=== PATIENT | female | born 1975 | race Caucasian/White ===

== ENCOUNTER → 2018-12-22 08:44 | Outpatient (CLI) | payer OTHER, SELFPAY ==
--- NOTE | 2018-12-22 08:48 | MM_ITS ---
MM Dig screening mamm BI w/CAD ORDERING PHYSICIAN : Dru Lane MD PATIENT AGE: 43 years GENDER: Female COMPARISON: No previous studies. Baseline exam INDICATION: Routine: Baseline SCREENING mammogram. No hormones. No new complaints. Noncontributory family history. TECHNIQUE: Standard CC and MLO images were obtained. R2 CAD reviewed. FINDINGS: Minimal residual fibroglandular elements Low-density breast with generalized fatty replacement. RIGHT BREAST:. 2 small nodular density at right breast. Area labeled A: Lateral breast towards quadrant of right breast. It measures up to 13 mm length x 4 mm.. Bilobed character. I suspect there is by far most likely a benign intramammary node. I believe follow-up 4-6 months would be the most practical approach for this feature Area labeled B: compatible intramammary node with a Deep central right breast measures up to 7.2 mm maximally.. LEFT BREAST:No areas of concern follow-up in one year on the left. Mole marker on second cc view accounts for the small density at medial left breast. Near the chest wall IMPRESSION: Right breast . Areas of nodularity which are more likely merely intramammary nodes. Suggest follow-up right mammogram 4-6 months to stable baseline appearance. Left breast. No areas of concern follow-up in one year BI-RADS Category: 3 Probably Benign Finding Short Term Follow-up RECOMMENDED FOLLOW-UP: 6M - 6 MONTH FOLLOW-UP Follow-up right mammogram in 4-6 months (A letter has been sent to the patient regarding results of the study.)
== END ==
PROVIDERS: PCP Family Medicine; Visit Provider Family Medicine
DX: Z12.31 Encounter for screening mammogram for malignant neoplasm of breast (principal)
CPT/HCPCS: 77067

== ENCOUNTER → 2019-04-01 10:44 | Outpatient (CLI) | payer OTHER, SELFPAY ==
--- NOTE | 2019-04-01 10:51 | XR_ITS ---
XR knee LT 3V Ordering Physician: Bryant Argueta MD Patient Age: 44 years: Female HISTORY: ITS.REASON: LEFT KNEE PAIN X 18 MONTHS Grinding, popping sensation at knee. TECHNIQUE: 3 views left knee nonweightbearing COMPARISON :None FINDINGS Left knee intact with no fracture. Bones well mineralized and joint space well maintained. . No joint effusion. No foreign bodies. IMPRESSION: Negative, Unremarkable Left Knee radiograph
== END ==
PROVIDERS: PCP Family Medicine; Referring Provider Family Medicine; Visit Provider Family Medicine
DX: M25.562 Pain in left knee (principal)
CPT/HCPCS: 73562

== ENCOUNTER → 2019-04-11 07:56 | Outpatient (CLI) | payer OTHER, SELFPAY ==
--- NOTE | 2019-04-11 08:02 | MR_ITS ---
MR knee LT wo con HISTORY: ITS.REASON: STRAIN OF LEFT KNEE ORDERING PHYSICIAN: Bryant Argueta MD PATIENT AGE: 44 years Comparison: 04/01/2019. TECHNIQUE: Standard multiplanar multiecho sequences are performed without contrast. FINDINGS: Alignment, joint spaces and signal from the osseous marrow elements are normal except there is a small subchondral 4 mm focus of increased T2 signal at the lateral facet of the patella where there is irregularity of the overlying articular cartilage. Remainder of the articular cartilage areas appear to be intact. There is a oblique linear focus of increased signal beginning at the posterior nonarticular margin of the posterior horn of the medial meniscus and this extends to the mid inferior articular margin of the posterior horn of the medial meniscus. The remainder of the medial meniscus and the lateral meniscus appear to be otherwise normal. Quadriceps and patellar tendons are intact. ACL and PCL and the MCL are intact. The lateral capsular complex appears to be intact. There is a small joint effusion. There is no evidence of popliteal cyst. IMPRESSION: Subtle linear oblique tear beginning at the posterior nonarticular margin of the posterior horn of the medial meniscus and extends to the mid inferior articular margin. 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
== END ==
PROVIDERS: PCP Family Medicine; Visit Provider Family Medicine
DX: S86.912A Strain of unspecified muscle(s) and tendon(s) at lower leg level, left leg, initial encounter (principal)
CPT/HCPCS: 73721

== ENCOUNTER → 2019-07-24 08:15 | Outpatient (CLI) | payer OTHER, SELFPAY ==
--- NOTE | 2019-07-24 08:18 | US_ITS ---
PROCEDURE: US ABDOMEN LIMITED CLINICAL INDICATION: RUQ PAIN Right upper quadrant pain with nausea COMPARISON: No exams were available for comparison FINDINGS: PANCREAS: Unremarkable. No obvious mass or abnormal fluid collection. No ductal dilatation LIVER: No focal liver lesions demonstrated. Homogeneous echogenicity. No intrahepatic biliary ductal dilatation evident. There is appropriate direction of blood flow within a non dilated portal vein RIGHT KIDNEY: Unremarkable. Normal size and echogenicity. No hydronephrosis GALLBLADDER: Wall echo shadow sign is present in the gallbladder consistent with contracted gallbladder filled with stones. Common bile duct is normal at 3 mm. Gallbladder wall appears slightly thickened at 4 mm anteriorly. IMPRESSION: Cholelithiasis. Mild gallbladder wall thickening Dictated by: Van Figueroa MD 07/24/2019 17:59 Electronically signed by Van Figueroa MD in [place] 07/24/2019 17:59
== END ==
PROVIDERS: PCP Family Medicine; Visit Provider Physician Assistant
DX: R10.11 Right upper quadrant pain (principal)
CPT/HCPCS: 76705

== ENCOUNTER → 2019-08-02 15:46 | Outpatient (CLI) | payer OTHER, SELFPAY ==
[2019-08-02 16:02] LABS: Basophils % 0.4 % (0.1-2.0); Eosinophils # 0.4 K/mm3 (0.0-0.4); Eosinophils % 4.7 % (0.1-12.0); Hematocrit 36.1 % (37.0-47.0); Hemoglobin 11.4 g/dL (12.2-16.2); Lymphocytes # 1.3 K/mm3 (0.7-4.5); Lymphocytes % 17.3 % (10-50); Mean Corpuscular HGB Conc 31.6 g/dL (31.8-35.4); Mean Corpuscular Hemoglobin 26.9 pg (27.0-31.2); Mean Corpuscular Volume 85.1 fl (81-99); Monocytes # 0.4 K/mm3 (0.1-1.0); Monocytes % 4.7 % (1.7-9.3); Neutrophils # 5.7 K/mm3 (1.8-7.8); Neutrophils % 72.9 % (37.0-80.0); Platelet Count 273 K/mm3 (142-424); Red Blood Count 4.24 M/mm3 (4.20-5.40); Red Cell Distribution Width 13.9 % (11.5-17.5); White Blood Count 7.8 K/mm3 (4.8-10.8)
[2019-08-02 17:40] LABS: HCG Qualitative, Serum Negative (Negative)
[2019-08-02 17:54] LABS: Alanine Aminotransferase 15 U/L (12-78); Albumin/Globulin Ratio 1.2 (1.1-1.8); Alkaline Phosphatase 100 U/L (46-116); Anion Gap 11.8 mEq/L (5-15); Aspartate Amino Transferase 17 U/L (15-37); Bilirubin,Total 0.3 mg/dL (0.2-1.0); Blood Urea Nitrogen 17 mg/dL (7-18); Calcium 8.8 mg/dL (8.5-10.1); Carbon Dioxide 29 mmol/L (21.0-32.0); Chloride 102 mmol/L (98-107); Creatinine,Serum 0.93 mg/dL (0.55-1.02); Estimated Glomerular Filt Rate 65 ml/min (>60); GFR (African American) 79 ML/MIN (>60); Globulin 3.4 gm/dl (1.3-3.2); Glucose 117 mg/dL (74-106); Potassium 3.8 mmoL/L (3.5-5.1); Sodium 139 mmol/L (136-145); Total Protein,Serum 7.4 gm/dL (6.4-8.2)
== END ==
PROVIDERS: Visit Provider Surgery
DX: Z01.818 Encounter for other preprocedural examination (principal); K80.10 Calculus of gallbladder with chronic cholecystitis without obstruction
CPT/HCPCS: 36415; 80053; 84703; 85025

== ENCOUNTER 2020-01-09 14:12 | Emergency (ER) | payer OTHER, SELFPAY ==
[2020-01-09 14:21] VITALS: BP 165/103; PULSE 111; RESP 18; TEMP 36.9; O2SAT 100; BMI 28.3
--- NOTE | 2020-01-09 14:25 | XR_ITS ---
PROCEDURE: XR CHEST PORTABLE CLINICAL HISTORY: cough/respiratory symptoms COMPARISON: No exams were available for comparison FINDINGS: The cardiomediastinal silhouette and pulmonary vascularity are within normal limits. The lungs are clear without infiltrates, suspicious nodules, or pleural effusions. No acute bony abnormalities. IMPRESSION: No acute findings. Dictated by: Van Figueroa MD 01/09/2020 15:16 Electronically signed by Van Figueroa MD in [place] 01/09/2020 15:16
--- NOTE | 2020-01-09 14:26 | HMH.COUGH ---
Cough Clinic HPI - History of Present Illness Complaint:: nasal congestion and shortness of breath HPI:: 44 year old with 2-3 days of nasal congestion, sneezing, minimal to no cough, and complaint of shortness of breath. No fevers, chills. No personal history of asthma or allergies Home Medications: Home Medications Medication Instructions Recorded Confirmed Type cyclobenzaprine 5 mg tablet 5 mg PO QHS 08/02/19 01/09/20 History hyoscyamine sulfate 0.125 mg tablet 0.125 mg PO QID 08/02/19 01/09/20 History lisinopril 20 1 tab PO DAILY 08/02/19 01/09/20 History mg-hydrochlorothiazide 12.5 mg tablet mecobalamin (vitamin B12) 1,000 1,000 mcg SUBLINGUAL DAILY 08/02/19 01/09/20 History mcg disintegrating tablet,sublingual meloxicam 15 mg tablet 15 mg PO DAILY 08/02/19 01/09/20 History omeprazole 40 mg capsule,delayed 40 mg PO DAILY 08/02/19 01/09/20 History release polyethylene glycol 3350 17 17 g PO DAILY 08/02/19 01/09/20 History gram/dose oral powder potassium chloride 10 mEq 10 meq PO DAILY 08/02/19 01/09/20 History capsule,extended release prednisone 20 mg tablet 20 mg PO DAILY 08/02/19 01/09/20 History sertraline 50 mg tablet 50 mg PO DAILY 08/02/19 01/09/20 History simvastatin 20 mg tablet 20 mg PO QHS 08/02/19 01/09/20 History Hydrocod/Acet 5/325 mg [[place] 1 - 2 tab PO Q6HP PRN #23 tab 09/01/19 01/09/20 Rx 5/325mg tablet] Cetirizine HCl 10 mg PO DAILY #30 tab 01/09/20 Rx Allergies/Adverse Reactions: Allergies Allergy/AdvReac Type Severity Reaction Status Date / Time Penicillins Allergy Rash Verified 01/09/20 14:21 Cough Clinic Triage - Symptoms Fever History: No Chills: Yes Myalgia: Yes Nasal Drainage: Yes (clear) Sore Throat: No Productive Cough: No Non-productive Cough: Yes Ear or Sinus Pain: No Joint Pain: No Chest Pain: Yes (tightness) Rash: No Shortness of Breath: Yes Nausea or Vomitting: No Headache: Yes Abdominal Pain: No Diarrhea: No - Exposure History Foreign Travel: No Direct Contact with COVID-19 Patient: No - Risk Factors Greater than 60 Years Old: No COPD: No Diabetes: No Heart Disease: Yes (htn) Home Oxygen Use: No Chronic Renal Disease: No Chronic Liver Disease: No Neurologic/Neurodevelopmental/intellectual disability: No Other Chronic Diseases: No If Female, currently : No Current Smoker: No Former Smoker: No Cough Clinic History I have reviewed the patient's past medical history: Yes Medical History: Reports:: Anxiety, Hyperlipidemia, Hypertension Denies:: Cancer, Diabetes Mellitus Type 1, Diabetes Mellitus Type 2, Internal Pacemaker, MRSA, Seizures Other Medical History: Denies: Blood Transfusion Reaction Laterality Cases: Right: Arthroscopy Knee Other Surgeries: Yes: Cholecystectomy, . No: Pacemaker Amputation: No Fractures: No - Social History Smoking Status: Never smoker Alcohol Intake: never Substance Use Type: denies use Occupational Status: employed Housing: house Household Members: spouse - Psychiatric History Pschychiatric History:: Reports:: Anxiety Family Hx:: Unable to obtain ROS Obtained: Yes All systems reviewed & no additional complaints Cough Clinic Exam - General General appearance: alert, in no apparent distress - Head Head exam: atraumatic, normocephalic, normal inspection - Eye Eye exam: Present: normal appearance, PERRL, EOMI - ENT ENT exam: Present: normal exam, normal oropharynx, mucous membranes moist, TM's normal bilaterally (small clear effusions), normal external ear exam - Neck Neck exam: Present: normal inspection, full ROM, trachea midline. Absent: meningismus, lymphadenopathy - Chest Chest inspection: Present: normal inspection, symmetric chest wall rise. Absent: tenderness - Respiratory Respiratory exam: Present: normal lung sounds bilaterally. Absent: respiratory distress - Cardiovascular Cardiovascular exam: Present: regular rate, normal rhythm. Absent:
[2020-01-09 14:40] LABS: Hematocrit 38.1 % (37.0-47.0); Mean Corpuscular HGB Conc 31.6 g/dL (31.8-35.4); Mean Corpuscular Hemoglobin 25.7 pg (27.0-31.2); Mean Corpuscular Volume 81.2 fl (81-99); Platelet Count 303 K/mm3 (142-424); Red Blood Count 4.69 M/mm3 (4.20-5.40); Red Cell Distribution Width 14.9 % (11.5-17.5); White Blood Count 9.1 K/mm3 (4.8-10.8)
[2020-01-09 14:41] LABS: Basophils # 0.1 K/mm3 (0-0.2); Basophils % 0.5 % (0.1-2.0); Eosinophils # 0.3 K/mm3 (0.0-0.4); Eosinophils % 3.3 % (0.1-12.0); Lymphocytes # 1.5 K/mm3 (0.7-4.5); Mean Platelet Volume 8.5 fl (7.4-10.4); Monocytes # 0.5 K/mm3 (0.1-1.0); Monocytes % 5.5 % (1.7-9.3); Neutrophils # 6.7 K/mm3 (1.8-7.8); Neutrophils % 73.7 % (37.0-80.0)
[2020-01-09 15:04] VITALS: BP 165/103; PULSE 111; RESP 16; TEMP 36.9; O2SAT 99
== END 2020-01-09 15:07 | disposition home or self-care (01) ==
PROVIDERS: Emergency Provider Family Medicine; PCP Family Medicine
DX: J30.2 Other seasonal allergic rhinitis (principal); F41.8 Other specified anxiety disorders; E78.5 Hyperlipidemia, unspecified; I10 Essential (primary) hypertension; Z90.49 Acquired absence of other specified parts of digestive tract
CPT/HCPCS: 36415; 71045; 85025; 87275; 87276; 99201; 99213

== ENCOUNTER → 2020-01-10 11:02 | Outpatient (CLI) | payer OTHER, SELFPAY ==
[2020-01-11 08:31] LABS: Covid-19 Nasal PCR Sendout Lex NOT DETECTED
--- NOTE | 2020-01-11 09:24 | PC.NURSE ---
left message with office staff to notify and Lorie De Paz of negative COVID 19 results.
== END ==
PROVIDERS: Visit Provider Physician Assistant
DX: R06.02 Shortness of breath (principal)
CPT/HCPCS: U0003

== ENCOUNTER → 2020-03-21 08:22 | Outpatient (CLI) | payer OTHER, SELFPAY ==
--- NOTE | 2020-03-21 08:28 | MM_ITS ---
PROCEDURE: MM DIG SCREENING MAMM BI W/CAD Digital Breast Tomosynthesis Included CLINICAL INDICATION: SCREENING There is no personal or family history of breast cancer. COMPARISON: [facility] MM Dig screening mamm BI w/CAD from 12/22/2018 TECHNIQUE: Standard CC and MLO images and 3D Tomosynthesis was obtained. R2 CAD reviewed. FINDINGS: The breasts are composed primarily of fat with minimal scattered fibroglandular densities in each breast. There are 2 small stable nodular densities central portion and aspect right breast likely small cysts or possibly intramammary nodes. There is stable small density near axillary tail right breast likely a low-lying node. There is no suspicious lesion and no suspicious microcalcifications. IMPRESSION: Fatty type breast parenchyma with no suspicious lesions seen BI-RAD Category: 2 Benign Finding(s) FOLLOW-UP: 1YR 1 Year Follow-up (A letter has been sent to the patient regarding results of the study.) Dictated by: Dr. Prosper Hills MD 03/22/2020 14:[address] Prosper Hills MD in [place] 03/22/2020 14:05
== END ==
PROVIDERS: PCP Family Medicine; Visit Provider Family Medicine
DX: Z12.31 Encounter for screening mammogram for malignant neoplasm of breast (principal)
CPT/HCPCS: 77063; 77067

== ENCOUNTER 2020-08-08 11:25 | Emergency (ER) | payer OTHER, SELFPAY ==
[2020-08-08 12:00] VITALS: BP 169/91; PULSE 89; RESP 18; TEMP 36.6; O2SAT 99; BMI 28.3
--- NOTE | 2020-08-08 12:22 | HMH.EDUTC ---
[facility] [place] Clinical Impression: Exposure to COVID-19 virus Disposition: Home, Self-Care Condition on Discharge: Good Instructions: Preventing the Spread of Coronavirus Discharge Instructions Additional Instructions: *Monitor Temp, Over the counter Motrin or Tylenol as directed/as needed Tylenol every 4 hours and Motrin every 6 hours (as long as your family doctor has told you that you can take it) for fever or pain. and straight to ER if unable to lower temp less than 101.0 after medication given *Warm salt water gargles may help to soothe the throat *Throat Lozenges *Warm fluids like tea with honey may help to soothe the throat *Sleep elevated *Humidifier/Vaporizer Follow up IMMEDIATELY for new or worsening symptoms or no Noticeable improvement over the next 48-72 hours. 911 for difficulty breathing or swallowing You was tested for today for COVID19 your test result should be back in the next 24-48 hours, you may call to the [facility] later today or tomorrow to see if your test results are back and the result [phone] [facility] hours are 9am-9pm You was given a handout with instructions for Self Quarantine and Self isolation for while you wait on test results and what to do if they are positive If you are positive the Health Dept will be contacting you also Referrals: Bryant Argueta MD [Primary Care Provider] - As needed Forms: Work/School Release Time of Disposition: 12:26 Medical Decision Making - Noam Inquiry Pt receiving controlled substance: No Noam was queried for this patient: No Vital Signs: 08/08/20 12:00 Temperature 97.8 F Temperature Source Oral Pulse Rate [Radial] 89 Respiratory Rate 18 Blood Pressure [Right Arm] 169/91 H Blood Pressure Mean [Right Arm] 117 Blood Pressure Source [Right Arm] Automatic Cuff Blood Pressure Position [Right Arm] Sitting 02 Sat by Pulse Oximetry 99 Oxygen Delivery Method Room Air Orders (Tests/Meds): ORDERS Category Date Time Status Covid-19 Nasal PCR Sendout [facility] 08/08/20 12:00 Received [facility] [place] HPI - General Stated complaint: covid exposure Time Seen by Provider: 08/08/20 12:22 Mode of Arrival: Ambulatory Source of Information: Patient Limitations: No Limitations Description of Symptoms (Recalled from Triage Doc. by RN): covid test HEENT Symptoms (Recalled from RN notes): No Resp Symptoms (Recalled from RN notes): No Skin Symptoms (Recalled from RN notes): No MS Symptoms (Recalled from RN notes): No Functional Status (Recalled from RN notes): wnl - History of Present Illness Provider Complaint: Patient states that she was around someone at work that tested positive for COVID and work is requiring them to get tested before she could return to work Denies any symptoms - Related Data Home Medications Medication Instructions Recorded Confirmed cyclobenzaprine 5 mg tablet 5 mg PO QHS 08/02/19 01/09/20 hyoscyamine sulfate 0.125 mg tablet 0.125 mg PO QID 08/02/19 01/09/20 lisinopril 20 1 tab PO DAILY 08/02/19 01/09/20 mg-hydrochlorothiazide 12.5 mg tablet mecobalamin (vitamin B12) 1,000 1,000 mcg SUBLINGUAL DAILY 08/02/19 01/09/20 mcg disintegrating tablet,sublingual meloxicam 15 mg tablet 15 mg PO DAILY 08/02/19 01/09/20 omeprazole 40 mg capsule,delayed 40 mg PO DAILY 08/02/19 01/09/20 release polyethylene glycol 3350 17 17 g PO DAILY 08/02/19 01/09/20 gram/dose oral powder potassium chloride 10 mEq 10 meq PO DAILY 08/02/19 01/09/20 capsule,extended release prednisone 20 mg tablet 20 mg PO DAILY 08/02/19 01/09/20 sertraline 50 mg tablet 50 mg PO DAILY 08/02/19 01/09/20 simvastatin 20 mg tablet 20 mg PO QHS 08/02/19 01/09/20 Previous Rx's Medication Instructions Recorded Hydrocod/Acet 5/325 mg [[place] 1 - 2 tab PO Q6HP PRN #23 tab 09/01/19 5/325mg tablet] Cetirizine HCl 10 mg PO DAILY #30 tab 01/09/20 Allergies Allergy/AdvReac Type Severity Reaction Status Date / Time Penicillins Al
[2020-08-08 12:39] VITALS: BP 169/91; PULSE 89; RESP 18; TEMP 36.6; O2SAT 99
[2020-08-09 10:23] LABS: Covid-19 Nasal PCR Sendout Lex NOT DETECTED
== END 2020-08-08 12:43 | disposition home or self-care (01) ==
PROVIDERS: Emergency Provider Nurse Practitioner; PCP Family Medicine
DX: Z20.828 Contact with and (suspected) exposure to other viral communicable diseases (principal)
CPT/HCPCS: 99201; U0004

== ENCOUNTER → 2020-10-04 09:54 | Outpatient (CLI) | payer OTHER, SELFPAY ==
--- NOTE | 2020-10-04 10:02 | XR_ITS ---
PROCEDURE: XR FINGER LT MIN 2V CLINICAL INDICATION: LT THUMB PAIN COMPARISON: No exams were available for comparison FINDINGS: No fracture or dislocation. No lytic or blastic change. There is normal mineralization. The joint spaces are well-preserved. No significant degenerative/arthritic changes. No erosive changes evident. Other findings:None. IMPRESSION: No acute findings. Dictated by: Van Figueroa MD 10/04/2020 13:42 Van Figueroa MD in [place] 10/04/2020 13:42
== END ==
PROVIDERS: PCP Family Medicine; Visit Provider Physician Assistant
DX: M79.645 Pain in left finger(s) (principal)
CPT/HCPCS: 73140

== ENCOUNTER 2021-06-20 18:29 | Emergency (ER) | payer OTHER, SELFPAY ==
[2021-06-20 18:42] VITALS: BP 179/112; PULSE 107; RESP 16; TEMP 36.8; O2SAT 98; BMI 28.3
--- NOTE | 2021-06-20 19:07 | HMH.EDUTC ---
[facility] [place] Disposition Clinical Impression: Exposure to COVID-19 virus Disposition: Home, Self-Care Condition on Discharge: Good Instructions: DI for Viral Syndrome, DI for COVID-19 (Suspected or Confirmed ), Preventing the Spread of Coronavirus Discharge Instructions Additional Instructions: *Monitor Temp, Over the counter Motrin or Tylenol as directed/as needed Tylenol every 4 hours and Motrin every 6 hours (as long as your family doctor has told you that you can take it) for fever or pain. and straight to ER if unable to lower temp less than 101.0 after medication given *Warm salt water gargles may help to soothe the throat *Throat Lozenges *Warm fluids like tea with honey may help to soothe the throat *Sleep elevated *Humidifier/Vaporizer Follow up IMMEDIATELY for new or worsening symptoms or no Noticeable improvement over the next 48-72 hours. 911 for difficulty breathing or swallowing FOllow up with your Family Doctor if your blood pressure remains elevated Monitor it over the weekend and straight to ED if any life threatening symptoms or follow up with PCP if no improvement You were tested for today for COVID19 your test result should be back in the next 24-48 hours, you was given handout for instructions on how to [facility] to see your results if you have trouble logging on you may call for your results You was given a handout with instructions for Self Quarantine and Self isolation for while you wait on test results and what to do if they are positive If you are positive the Health Dept will be contacting you also Make sure to take your Vitamins Vit. C Vit D and Zinc if you can take them Referrals: Bryant Argueta MD [Primary Care Provider] - As needed Forms: Work/School Release Time of Disposition: 19:14 Medical Decision Making - Noam Inquiry Pt receiving controlled substance: No Noam was queried for this patient: No Vital Signs: 06/20/21 18:42 06/20/21 19:21 Temperature 98.2 F 98.2 F Temperature Source Oral Pulse Rate 100 H Pulse Rate [Left] 107 H Respiratory Rate 16 16 Blood Pressure 175/98 H Blood Pressure [Right Arm] 179/112 H Blood Pressure Mean [Right Arm] 134 02 Sat by Pulse Oximetry 98 Orders (Tests/Meds): ORDERS Category Date Time Status Covid-19 Nasal PCR ([facility]) Routine Lab 06/20/21 18:35 Received Medical Decision Narrative: Patient blood pressure elevated she states that she takes blood pressure medication and she is nervous and upset over the COVID test and possibility of being positive Recommended transfer to the ED for further work up and even treatment of blood pressure and patient declined states that she today wanted tested for COVID and she would follow up with her PCP if it continued to stay elevated [facility] [place] HPI - General Stated complaint: covid test, NASSAR, congestion Time Seen by Provider: 06/20/21 19:07 Mode of Arrival: Ambulatory Source of Information: Patient Limitations: No Limitations Description of Symptoms (Recalled from Triage Doc. by RN): DAUGHTER IS COVID POS. PT C/O EAR ACHES, SORE THROAT AND NASSAR. HEENT Symptoms (Recalled from RN notes): Yes (NASSAR, SORE THROAT AND EARS ACHE) Resp Symptoms (Recalled from RN notes): No Skin Symptoms (Recalled from RN notes): No MS Symptoms (Recalled from RN notes): No Functional Status (Recalled from RN notes): NA - History of Present Illness Provider Complaint: Patient states that she was recently around her daughter that tested positive yesterday for COVID states that she has been having body aches, chills, felt like she had a fever earlier and scratchy throat so she wanted to come in and get tested for COVID - Related Data Home Medications Medication Instructions Recorded Confirmed cyclobenzaprine 5 mg tablet 5 mg PO QHS 08/02/19 01/09/20 hyoscyamine sulfate 0.125 mg tablet 0.125 mg PO QID 08/02/19 01/09/20 lisinopril 20 1 tab PO DAILY 08/02/19 01/09/20 mg-hydrochlorothiazide 12.5 mg
[2021-06-20 19:21] VITALS: BP 175/98; PULSE 100; RESP 16; TEMP 36.8
== END 2021-06-20 19:28 | disposition home or self-care (01) ==
PROVIDERS: Emergency Provider Nurse Practitioner; PCP Family Medicine
DX: Z20.822 Contact with and (suspected) exposure to COVID-19 (principal); R51.9 Headache, unspecified; J02.9 Acute pharyngitis, unspecified; I10 Essential (primary) hypertension; F41.9 Anxiety disorder, unspecified; E78.5 Hyperlipidemia, unspecified; Z79.899 Other long term (current) drug therapy
CPT/HCPCS: 99202; C9803; G0463; U0003; U0005

== ENCOUNTER → 2021-07-07 09:32 | Outpatient (CLI) | payer OTHER, SELFPAY ==
[2021-07-07 09:52] LABS: Basophils # 0.1 K/mm3 (0-0.2); Basophils % 0.7 % (0.1-2.0); Eosinophils # 0.3 K/mm3 (0.0-0.4); Hematocrit 38.5 % (37.0-47.0); Hemoglobin 12.4 g/dL (12.2-16.2); Lymphocytes # 1.5 K/mm3 (0.7-4.5); Mean Corpuscular HGB Conc 32.3 g/dL (31.8-35.4); Mean Corpuscular Hemoglobin 27.6 pg (27.0-31.2); Mean Corpuscular Volume 85.4 fl (81-99); Mean Platelet Volume 8.8 fl (7.4-10.4); Monocytes # 0.3 K/mm3 (0.1-1.0); Monocytes % 4.3 % (1.7-9.3); Neutrophils # 5.4 K/mm3 (1.8-7.8); Neutrophils % 71.1 % (37.0-80.0); Platelet Count 285 K/mm3 (142-424); Red Blood Count 4.51 M/mm3 (4.20-5.40); Red Cell Distribution Width 14.3 % (11.5-17.5); White Blood Count 7.6 K/mm3 (4.8-10.8)
[2021-07-07 10:47] LABS: Alanine Aminotransferase 22 U/L (12-78); Albumin Level 4.4 g/dl (3.5-5.0); Albumin/Globulin Ratio 1.3 (1.1-1.8); Alkaline Phosphatase 101 U/L (38-126); Anion Gap 11.3 mEq/L (5-15); Aspartate Amino Transferase 30 U/L (14-36); Bilirubin,Total 0.2 mg/dl (0.2-1.3); Blood Urea Nitrogen 21 mg/dl (7-17); Calcium 9.6 mg/dl (8.4-10.2); Carbon Dioxide 31 mmol/L (22.0-30.0); Chloride 103 mmol/L (98-107); Estimated Glomerular Filt Rate 60 ml/min (>60); GFR (African American) 72 ML/MIN (>60); Globulin 3.3 g/dL (1.3-3.2); Glucose 111 mg/dl (74-100); Potassium 4.3 mmoL/L (3.5-5.1); Sodium 141 mmol/L (136-145); Total Protein,Serum 7.7 g/dl (6.3-8.2)
[2021-07-07 11:52] LABS: Vitamin B12 437 pg/mL (239-931)
[2021-07-07 11:53] LABS: Folate 4.71 ng/mL
== END ==
PROVIDERS: Visit Provider Specialist
DX: M79.641 Pain in right hand (principal); M79.642 Pain in left hand
CPT/HCPCS: 36415; 80053; 82607; 82746; 85025

== ENCOUNTER → 2021-10-13 10:16 | Outpatient (CLI) | payer OTHER, SELFPAY | PROVIDERS: Visit Provider Nurse Practitioner | DX: Z20.822 Contact with and (suspected) exposure to COVID-19 (principal) | CPT/HCPCS: C9803; U0003; U0005 ==

== ENCOUNTER 2021-10-17 09:26 | Emergency (ER) | payer OTHER, SELFPAY ==
[2021-10-17 09:36] VITALS: BP 148/95; PULSE 95; RESP 14; TEMP 37.2; O2SAT 99; BMI 29.2
[2021-10-17 09:58] VITALS: BP 148/95; PULSE 95; RESP 14; TEMP 37.2
--- NOTE | 2021-10-17 10:13 | HMH.EDUTC ---
[facility] [place] Clinical Impression: Viral syndrome, Close exposure to COVID-19 virus Disposition: Home, Self-Care Condition on Discharge: Good Instructions: DI for Viral Syndrome, DI for COVID-19 (Suspected or Confirmed ), Preventing the Spread of Coronavirus Discharge Instructions Additional Instructions: Drink plenty of fluids. Take tylenol or ibuprofen for pain or fever. Take the medications as directed. Follow up with your regular doctor. GO TO THE ER FOR ANY WORSENING SYMPTOMS Quarantine until you know the results of your covid-19 test. Notify your school or workplace of your results and follow their instructions regarding return to work/school. The cough medication (promethazine dm) will make you drowsy, so don't drive or operate heavy machinery after taking it. Prescriptions: Promethazine/Dextromethorphan [Promethazine-Dm Syrup] 5 ml PO Q6HP PRN #240 ml PRN Reason: Cough Transmission Status: Received by [facility] Ondansetron [Zofran 4mg ODT] 4 mg PO Q8HP PRN #20 tab PRN Reason: Nausea Transmission Status: Received by [facility] methylPREDNISolone [Medrol] 4 mg PO DIRECTED 6 Days #21 packet Transmission Status: Received by [facility] Referrals: Bryant Argueta MD [Primary Care Provider] - Forms: Work/School Release Time of Disposition: 10:17 Medical Decision Making - Medical Records Medical records reviewed: No: I reviewed the patient's medical records. - Noam Inquiry Pt receiving controlled substance: No Vital Signs: 10/17/21 09:36 10/17/21 09:58 Temperature 98.9 F 98.9 F Temperature Source Oral Pulse Rate 95 H Pulse Rate [Left] 95 H Respiratory Rate 14 14 Blood Pressure 148/95 H Blood Pressure [Right Arm] 148/95 H Blood Pressure Mean [Right Arm] 112 02 Sat by Pulse Oximetry 99 [facility] [place] HPI - General Stated complaint: cough,headache,weakness Time Seen by Provider: 10/17/21 09:40 Mode of Arrival: Ambulatory Source of Information: Patient Limitations: No Limitations Description of Symptoms (Recalled from Triage Doc. by RN): pt c/o a sore throat, NASSAR and cough. pts son is positive for covid. HEENT Symptoms (Recalled from RN notes): Yes (sore throat and NASSAR) Resp Symptoms (Recalled from RN notes): Yes (cough) Skin Symptoms (Recalled from RN notes): No MS Symptoms (Recalled from RN notes): No Functional Status (Recalled from RN notes): wnl - History of Present Illness Provider Complaint: She states that for the past 2 days she has had body aches, chills, low grade fever, scratchy sore throat. She has been exposed to covid-19 by her son having it living in her home. She denies any shortness of breath or chest pain. - Related Data Home Medications Medication Instructions Recorded Confirmed lisinopril 20 1 tab PO DAILY 08/02/19 01/09/20 mg-hydrochlorothiazide 12.5 mg tablet mecobalamin (vitamin B12) 1,000 1,000 mcg SUBLINGUAL DAILY 08/02/19 07/07/21 mcg disintegrating tablet,sublingual sertraline 50 mg tablet 50 mg PO DAILY 08/02/19 07/07/21 simvastatin 20 mg tablet 20 mg PO QHS 08/02/19 07/07/21 Previous Rx's Medication Instructions Recorded Cetirizine HCl 10 mg PO DAILY #30 tab 01/09/20 diclofenac sodium 50 mg 50 mg PO Q12H PRN #60 tab 07/07/21 tablet,delayed release Ondansetron [Zofran 4mg ODT] 4 mg PO Q8HP PRN #20 tab 10/17/21 Promethazine/Dextromethorphan 5 ml PO Q6HP PRN #240 ml 10/17/21 [Promethazine-Dm Syrup] methylPREDNISolone [Medrol] 4 mg PO DIRECTED 6 Days #21 10/17/21 packet Allergies Allergy/AdvReac Type Severity Reaction Status Date / Time Penicillins Allergy Rash Verified 07/07/21 08:17 - Worker's Comp Is this a Worker's Comp case?: No [place] History - Hepatitis A Screen Drug use history?: No High risk sexual behaviors?: No History of sexually transmitted infection?: No Currently employed?: No Childcare worker?: No Do you have indoor plumbi
== END 2021-10-17 10:25 | disposition home or self-care (01) ==
PROVIDERS: Emergency Provider Nurse Practitioner Family; PCP Family Medicine
DX: U07.1 COVID-19 (principal); F41.9 Anxiety disorder, unspecified; I10 Essential (primary) hypertension; E78.5 Hyperlipidemia, unspecified
CPT/HCPCS: 99202; C9803; G0463; U0003; U0005

== ENCOUNTER 2021-10-22 15:35 | Emergency (ER) | payer OTHER, SELFPAY ==
[2021-10-22 15:36] VITALS: BP 142/99; PULSE 101; RESP 18; TEMP 37; O2SAT 98; BMI 29.2
--- NOTE | 2021-10-22 15:40 | XR_ITS ---
PROCEDURE INFORMATION: Exam: XR Chest Exam date and time: 10/22/2021 3:40 PM Age: 46 years old Clinical indication: Cough; Additional info: Covid +, [place] TECHNIQUE: Imaging protocol: XR of the chest. Views: 1 view. COMPARISON: CR XR CHEST PORTABLE 01/09/2020 2:32 PM FINDINGS: Lungs: There is no pulmonary vascular congestion. There is no evidence of focal alveolar consolidation. Pleural spaces: There are no pleural effusions. There is no evidence of pneumothorax. Heart/Mediastinum: The cardiac silhouette is within normal limits. Bones/joints: No acute osseous abnormality is identified. IMPRESSION: No acute cardiopulmonary disease identified.
--- NOTE | 2021-10-22 16:18 | HMH.EDGENADL ---
ED Disposition Clinical Impression: COVID-19 virus infection Disposition: Home, Self-Care Condition on Discharge: Good Instructions: DI for COVID-19 (Suspected or Confirmed ) Additional Instructions: Rest, drink plenty of fluids. Tylenol or Ibuprofen for fever and/or aches and pains. Monitor your symptoms. IF YOU HAVE AN EMERGENCY WARNING SIGN (INCLUDING TROUBLE BREATHING), SEEK EMERGENCY MEDICAL CARE IMMEDIATELY. COVID-19 Isolation: People with COVID-19 should isolate for 5 days. Then if they are asymptomatic (no symptoms) or their symptoms are resolving (without fever for 24 hours), follow that by 5 days of wearing a mask when around others to minimize the risk of infecting people you encounter. If you test positive for COVID-19 and never develop symptoms, day 0 is the day of your positive viral test (based on the date you were tested) and day 1 is the first full day after your positive test. If you develop symptoms after testing positive, your 5-day isolation period must start over. Day 0 is your first day of symptoms. Day 1 is the first full day after your symptoms developed. What to do: Stay in a separate room from other household members, if possible. Use a separate bathroom, if possible. Avoid contact with other members of the household and pets. Don?t share personal household items, like cups, towels, and utensils. Wear a mask when around other people if able. Referrals: Bryant Argueta MD [Primary Care Provider] - - Critical Care Critical Care Time: No Attestation: On 10/22/21, the high probability of a clinically significant, sudden or life threatening deterioration of the following system(s) required my full and direct attention, intervention and personal management. The time I documented below is in addition to time spent performing reported procedures but includes the following listed in this critical care notation. Medical Decision Making - Noam Inquiry Pt receiving controlled substance: No Vital Signs: 10/22/21 15:36 Temperature 98.6 F Temperature Source Oral Pulse Rate [Right Radial] 101 H Respiratory Rate 18 Blood Pressure [Right Arm] 142/99 H Blood Pressure Mean [Right Arm] 113 Blood Pressure Source [Right Arm] Automatic Cuff Blood Pressure Position [Right Arm] Sitting 02 Sat by Pulse Oximetry 98 Oxygen Delivery Method Room Air - Radiology Data #1 Image(s): Chest Image Reviewed: Yes I reviewed the patient's radiology image, Yes I have reviewed radiologist's interpretation Preliminary Findings: Normal/NAD Procedure(s): XR chest portable Accession Number(s): [id number] cc: Naomi Moy MD; Bryant Argueta MD~ PROCEDURE INFORMATION: Exam: XR Chest Exam date and time: 10/22/2021 3:40 PM Age: 46 years old Clinical indication: Cough; Additional info: Covid +, guerra TECHNIQUE: Imaging protocol: XR of the chest. Views: 1 view. COMPARISON: CR XR CHEST PORTABLE 01/09/2020 2:32 PM FINDINGS: Lungs: There is no pulmonary vascular congestion. There is no evidence of focal alveolar consolidation. Pleural spaces: There are no pleural effusions. There is no evidence of pneumothorax. Heart/Mediastinum: The cardiac silhouette is within normal limits. Bones/joints: No acute osseous abnormality is identified. IMPRESSION: No acute cardiopulmonary disease identified. - Reevaluation(s) Time: 16:50 Reevaluation #1: Pulse ox 99% on room air with mask on. Speaking in normal sentences and breathing easily. No respiratory distress. General Adult HPI - General Chief complaint: Shortness of Breath/Dyspnea Stated complaint: covid +, SOA Time Seen by Provider: 10/22/21 16:10 Mode of Arrival: Wheelchair Limitations: No Limitations Description of Symptoms (Recalled from ER Triage Doc. by RN): Pt reports has been GUERRA today, reports she is covid +, symptoms began
[2021-10-22 17:16] VITALS: BP 140/91; PULSE 94; RESP 18; TEMP 37; O2SAT 98
== END 2021-10-22 17:16 | disposition home or self-care (01) ==
PROVIDERS: Emergency Provider Emergency Medicine; PCP Family Medicine
DX: U07.1 COVID-19 (principal)
CPT/HCPCS: 71045; 99282

== ENCOUNTER → 2022-01-02 08:08 | Outpatient (CLI) | payer SELFPAY ==
--- NOTE | 2022-01-02 08:14 | CT_ITS ---
FINAL REPORT CLINICAL HISTORY: chest pain FINDINGS: CT CORONARY CALCIUM SCORE W/O TECHNIQUE: Thin-section axial images were obtained through the heart and coronary arteries per CT coronary calcium score protocol. This study was performed with techniques to keep radiation doses as low as reasonably achievable (ALARA). Individualized dose reduction techniques using automated exposure control or adjustment of mA and/or kV according to the patient's size were employed. FINDINGS: On the axial images, there is no identified calcified plaque. This gives a coronary artery calcium score of 0 based on the Agatston scale. This coronary artery calcium score places the patient within the 0 percentile based on age and gender. The heart size is normal. There is no pleural or pericardial effusion. Limited evaluation of the lungs reveal no suspicious nodule. IMPRESSION: Coronary artery calcium score of 0 based on the Agatston scale. Reviewed, Interpreted and Dictated by Catarino Canales III, MD Transcribed by Sara Garcia Authenticated by Catarino Canales III, MD on 01/05/2022 04:24:04 PM [facility]
== END ==
PROVIDERS: PCP Physician Assistant; Visit Provider Physician Assistant
DX: Z13.6 Encounter for screening for cardiovascular disorders (principal)
CPT/HCPCS: 75571

== ENCOUNTER 2022-11-22 18:03 | Emergency (ER) | payer BC, SELFPAY ==
[2022-11-22 18:10] VITALS: BP 177/96; PULSE 92; RESP 20; TEMP 36.8; O2SAT 96; BMI 32.1
--- NOTE | 2022-11-22 18:27 | EXP.UTC ---
Discharge Plan Disposition Patient Disposition: Home, Self-Care Condition: Good Prescriptions Prescriptions: New azithromycin [Zithromax Z-Rajeev] 250 mg tablet See Rx Instructions .ROUTE .COMPLEX 5 Days Qty: 6 0RF Rx Instructions: For 250 mg dose pack: take 500 mg today (day 1), then 250 mg for 4 days (days 2-5) methylprednisolone [Medrol (Rajeev)] 4 mg tablets,dose pack See Rx Instructions .Route .COMPLEX 6 Days Qty: 21 0RF Rx Instructions: taper pack; benzonatate 100 mg capsule 100 mg PO TID PRN (Reason: cough) Qty: 30 0RF No Action sertraline 50 mg tablet 50 mg PO DAILY lisinopril-hydrochlorothiazide 20-12.5 mg tablet 1 tab PO DAILY simvastatin 20 mg tablet 20 mg PO QHS mecobalamin (vitamin B12) 1,000 mcg tablet,disintegrating 1,000 mcg SUBLINGUAL DAILY diclofenac sodium 50 mg tablet,delayed release (DR/EC) 50 mg PO Q12H PRN (Reason: Tendonitis) Qty: 60 1RF Rx Instructions: For a month then 1 tablet daily for 2 weeks and then as needed only. cetirizine 10 MG tablet 10 mg PO DAILY Qty: 30 0RF promethazine-DM 120 ML syrup 5 ml PO Q6HP PRN (Reason: Cough) Qty: 240 0RF methylprednisolone 4 MG tablets,dose pack 4 mg PO DIRECTED 6 Days Qty: 21 0RF ondansetron 4 MG tablet,disintegrating 4 mg PO Q8HP PRN (Reason: Nausea) Qty: 20 0RF Referrals Follow up/Referrals: Lorie De Paz PA [Primary Care Provider] - See instructions Activity Restrictions/Add. Instructions Additional Instructions/Restrictions: *Monitor Temp, Over the counter Motrin or Tylenol as directed/as needed Tylenol every 4 hours and Motrin every 6 hours (as long as your family doctor has told you that you can take it) for fever or pain. and straight to ER if unable to lower temp less than 101.0 after medication given *Warm salt water gargles may help to soothe the throat *Throat Lozenges? *Warm fluids like tea with honey may help to soothe the throat? *Sleep elevated *Humidifier/Vaporizer Follow up IMMEDIATELY for new or worsening symptoms or no Noticeable improvement over the next 48-72 hours. 911 for difficulty breathing or swallowing Clinical Impressions Clinical Impression: Sinusitis Qualifiers: Sinusitis location: unspecified location Chronicity: unspecified Qualified Code(s): J32.9 - Chronic sinusitis, unspecified Instructions Patient Instructions: Sinusitis, DI for Sinusitis Discharge ED Provider: Ruma Hyman [facility] [place] General Stated complaint: ear pain, cough, sore throat Mode of Arrival: Ambulatory Source of Information: Patient Limitations: No Limitations Time Seen by Provider: 11/22/22 18:27 Description of Symptoms (Recalled from Triage Doc. by RN): PATIENT C/O SORE THROAT, EAR PAIN, SNEEZING, AND COUGH THAT STARTED WEDNESDAY MORNING HEENT Symptoms (Recalled from RN notes): Yes Resp Symptoms (Recalled from RN notes): Yes Skin Symptoms (Recalled from RN notes): No MS Symptoms (Recalled from RN notes): No Functional Status (Recalled from RN notes): WNL History of Present Illness Provider Complaint: Patient states that she has been having sinus congestion and pressure on and off but on Wednesday it got worse and she started with sore throat, pain and pressure in both ears and cough States that she has been taking OTC medications but it has continued to get worse so she came in Related Data Home Medications Medication Instructions Recorded Confirmed lisinopril 20 1 tab PO DAILY blood pressure 08/02/19 01/09/20 mg-hydrochlorothiazide 12.5 mg tablet mecobalamin (vitamin B12) 1,000 1,000 mcg sublingual DAILY 08/02/19 07/07/21 mcg disintegrating Supplement tablet,sublingual sertraline 50 mg tablet 50 mg PO DAILY mood 08/02/19 07/07/21 simvastatin 20 mg tablet 20 mg PO QHS Cholesterol 08/02/19 07/07/21 Previous Rx's Medication Instructions Recorded cetirizine 10 mg tablet 10 mg PO DAILY #30 tabs 01/09/20 dic
[2022-11-22 18:44] VITALS: BP 177/96; PULSE 92; RESP 20; TEMP 36.8; O2SAT 96
== END 2022-11-22 18:47 | disposition home or self-care (01) ==
PROVIDERS: Emergency Provider Nurse Practitioner; PCP Physician Assistant
DX: J32.9 Chronic sinusitis, unspecified (principal)
CPT/HCPCS: 99212; 99213; G0463

== ENCOUNTER → 2023-08-20 10:42 | Outpatient (CLI) | payer BC, SELFPAY ==
[2023-08-20 10:59] LABS: Adenovirus,PCR Not Detected (NotDetected); Coronavirus 19, PCR Not Detected (NotDetected); Coronavirus 229E Not Detected (NotDetected); Coronavirus NL63 Not Detected (NotDetected); Coronavirus OC43 Not Detected (NotDetected); Coronovirus HKU1,PCR Not Detected (NotDetected); Human Metapneumovirus Not Detected (NotDetected); Influenza A, PCR Not Detected (NotDetected); Influenza AH1, 2009 Not Detected (NotDetected); Influenza AH1, PCR Not Detected (NotDetected); Influenza AH3,PCR Not Detected (NotDetected); Influenza B, PCR Not Detected (NotDetected); Parainfluenza 1, PCR Not Detected (NotDetected); Parainfluenza 2, PCR Not Detected (NotDetected); Parainfluenza 3, PCR Not Detected (NotDetected); Parainfluenza 4, PCR Not Detected (NotDetected); Respiratory Syncytial Virus Not Detected (NotDetected); Rhinovirus/Enterovirus Not Detected (NotDetected)
== END ==
PROVIDERS: PCP Family Medicine; Visit Provider Family Medicine
DX: Z20.822 Contact with and (suspected) exposure to COVID-19 (principal)
CPT/HCPCS: 87632; 87635

== ENCOUNTER 2023-10-28 07:47 | Outpatient (CLI) | payer BC, SELFPAY ==
--- NOTE | 2023-10-28 07:50 | MM_ITS ---
PROCEDURE INFORMATION: Exam: MG Bilateral Screening 3D Mammography Exam date and time: 10/28/2023 7:57 AM Age: 48 years old Clinical indication: Screening mammogram TECHNIQUE: Imaging protocol: Bilateral Screening tomosynthesis and 2D mammography including computer-aided detection (CAD) when performed. COMPARISON: 1. MG MM DIG SCREENING MAMM BI W/CAD 03/21/2020 8:30 AM 2. MG SCBI MM Dig screening mamm BI w/CAD 12/22/2018 8:58 AM FINDINGS: MAMMOGRAPHY: Breast composition: The breasts are almost entirely fatty. Mass: None. Architectural distortion: No new or suspicious architectural distortion. Calcifications: No new or suspicious calcifications are present Asymmetric density: No new or suspicious asymmetric density is present Skin thickening: None. Axillary adenopathy: None. IMPRESSION: No mammographic evidence of malignancy. Recommend annual screening mammography unless otherwise clinically indicated. ASSESSMENT: BI-RADS category 1: Negative
== END 2023-10-28 23:59 ==
LOC: RAD 07:47
PROVIDERS: PCP Family Medicine; Visit Provider Physician Assistant
DX: Z12.31 Encounter for screening mammogram for malignant neoplasm of breast (principal)
CPT/HCPCS: 77063; 77067

== ENCOUNTER 2023-10-28 11:58 | Outpatient (CLI) | payer BC, SELFPAY ==
[2023-10-28 12:52] LABS: Alanine Aminotransferase 23 U/L (12-78); Albumin Level 4.7 g/dl (3.5-5.0); Albumin/Globulin Ratio 1.6 (1.1-1.8); Alkaline Phosphatase 112 U/L (38-126); Aspartate Amino Transferase 30 U/L (14-36); Bilirubin,Total 0.3 mg/dl (0.2-1.3); Blood Urea Nitrogen 17 mg/dl (7-17); Calcium 10.1 mg/dl (8.4-10.2); Carbon Dioxide 33 mmol/L (22.0-30.0); Chloride 100 mmol/L (98-107); Chol/HDL Ratio 5.1 (1-3.5); Cholesterol 240 mg/dl (140-200); Estimated Glomerular Filt Rate 53 ml/min (>60); GFR (African American) 64 ML/MIN (>60); Globulin 2.9 g/dL (1.3-3.2); Glucose 99 mg/dl (74-100); HDL Cholesterol 47 mg/dl (40-60); Sodium 140 mmol/L (136-145); Total Protein,Serum 7.6 g/dl (6.3-8.2); Triglycerides 116 mg/dl (30-150); VLDL Cholesterol 23 mg/dL (0-40)
[2023-10-28 13:03] LABS: Direct LDL Cholesterol 137.84 mg/dL (100-129)
[2023-10-28 13:09] LABS: 25-OH Vitamin D, Total 13.2 ng/mL (30-100)
[2023-10-28 13:23] LABS: Thyroid Stimulating Hormone 3.28 uIU/mL (0.465-4.68)
[2023-10-28 13:41] LABS: Vitamin B12 440 pg/mL (239-931)
[2023-10-28 13:56] LABS: Iron 60 ug/dL (37-170)
[2023-10-28 14:34] LABS: Ferritin 37.8 ng/ml (6.24-137)
== END 2023-10-28 23:59 ==
LOC: LAB 12:00
PROVIDERS: PCP Family Medicine; Visit Provider Physician Assistant
DX: N95.0 Postmenopausal bleeding (principal); E55.9 Vitamin D deficiency, unspecified
CPT/HCPCS: 36415; 80053; 80061; 82306; 82607; 82728; 83540; 84443

== ENCOUNTER 2023-11-01 09:17 | Outpatient (CLI) | payer BC, SELFPAY ==
--- NOTE | 2023-11-01 09:17 | US_ITS ---
PROCEDURE: US TRANSVAGINAL CLINICAL INDICATION: Post Menopausal Bleeding COMPARISON: No exams were available for comparison FINDINGS: Transvaginal and transabdominal sonographic images of the pelvis were obtained. UTERUS: 6.7 cm x 4.0cmx 2.5 cm retroverted with a combined endometrial thickness of 6.4mm. There are several small nabothian cysts. The largest measures 5.5 mm. LEFT OVARY: 2.4cmx1.7 cmx0.7cm with a volume of 1.5ml. RIGHT OVARY: 1.9 cmx 1.5 cm x0.7 cm with a volume of 1ml. Both ovaries are seen and appear normal. Doppler flow to both ovaries are seen. There is no fluid in the cul-de-sac. IMPRESSION: 1. Retroverted uterus normal in shape and size. The endometrium is 6.4 mm. 2. There are several small nabothian cysts in the cervix. 3. Both left and right ovaries are seen transabdominally. They were difficult to see visualized but appear normal and atrophic. 4. No fluid in the cul-de-sac. Dictated by: Leo Knutson MD 11/01/2023 13:46 Leo Knutson MD in OV 11/01/2023 13:46
== END 2023-11-01 23:59 ==
LOC: RAD 09:17
PROVIDERS: PCP Family Medicine; Visit Provider Obstetrics & Gynecology
DX: N95.0 Postmenopausal bleeding (principal)
CPT/HCPCS: 76830

== ENCOUNTER 2023-11-08 15:54 | Outpatient (CLI) | payer BC, SELFPAY ==
[2023-11-08 16:32] LABS: Basophils % 0.4 % (0.1-2.0); Eosinophils # 0.4 K/mm3 (0.0-0.4); Eosinophils % 5.4 % (0.1-12.0); Hematocrit 40.4 % (37.0-47.0); Lymphocytes # 1.8 K/mm3 (0.7-4.5); Lymphocytes % 22.8 % (10-50); Mean Corpuscular HGB Conc 34.5 g/dL (31.8-35.4); Mean Corpuscular Hemoglobin 29.6 pg (27.0-31.2); Mean Corpuscular Volume 85.7 fl (81-99); Mean Platelet Volume 9.2 fl (7.4-10.4); Monocytes # 0.5 K/mm3 (0.1-1.0); Monocytes % 5.7 % (1.7-9.3); Neutrophils # 5.2 K/mm3 (1.8-7.8); Neutrophils % 65.6 % (37.0-80.0); Platelet Count 254 K/mm3 (142-424); Red Blood Count 4.72 M/mm3 (4.20-5.40); Red Cell Distribution Width 13.8 % (11.5-17.5); White Blood Count 7.9 K/mm3 (4.8-10.8)
[2023-11-08 16:55] LABS: Alanine Aminotransferase 24 U/L (12-78); Albumin Level 4.6 g/dl (3.5-5.0); Albumin/Globulin Ratio 1.6 (1.1-1.8); Alkaline Phosphatase 108 U/L (38-126); Anion Gap 10.9 mEq/L (5-15); Aspartate Amino Transferase 29 U/L (14-36); Bilirubin,Total 0.4 mg/dl (0.2-1.3); Blood Urea Nitrogen 14 mg/dl (7-17); Calcium 9.6 mg/dl (8.4-10.2); Carbon Dioxide 34 mmol/L (22.0-30.0); Chloride 99 mmol/L (98-107); Estimated Glomerular Filt Rate 59 ml/min (>60); GFR (African American) 72 ML/MIN (>60); Globulin 2.8 g/dL (1.3-3.2); Glucose 104 mg/dl (74-100); Potassium 3.9 mmoL/L (3.5-5.1); Sodium 140 mmol/L (136-145); Total Protein,Serum 7.4 g/dl (6.3-8.2)
[2023-11-08 17:14] LABS: HCG,Quantitative < 2 mIU/ml (0-5.42)
== END 2023-11-08 23:59 ==
LOC: LAB 15:54
PROVIDERS: PCP Family Medicine; Visit Provider Obstetrics & Gynecology
DX: N95.0 Postmenopausal bleeding (principal)
CPT/HCPCS: 36415; 80053; 84702; 85025

== ENCOUNTER 2023-11-11 09:43 | Day surgery (SDC) | payer BC, SELFPAY ==
[2023-11-09 09:05] VITALS: BMI 29.2
[2023-11-11] VITALS (8 sets, daily range): BP systolic 105–142; BP diastolic 56–81; PULSE 74–101; RESP 16–18; TEMP 36.2–37.3; O2SAT 91–97
[2023-11-11] MEDS: LACTATED RINGERS 1000ML 1,000 ML 100 ML IV (09:54)
--- NOTE | 2023-11-11 10:30 | EXP.ANES.CKL ---
[facility] Disclaimer: The information contained in this section may have been updated after the patient was seen, as this information can be updated by other users. Medical History Anxiety and depression Surgical History Hx of section Hx of cholecystectomy Hx of knee surgery Family History Other Diabetes Hypertension Social History Smoking Status: Never smoker alcohol intake: never substance use type: denies use current occupational status: other Travel in the last 8 weeks: None household members: spouse housing: house current occupational exposures/hazards: No caffeine: No H Anesthesia Checklist Patient Identification Patient Identification: Arm Band Structural Data Admitted From: Home Planned Operative Procedure/s: Hysteroscopy, D&C, Myosure Ablation Consent for Planned Operative Procedure(s) Verified: Yes Verified Documents: Surgical Consent and History and Physical NPO Status Verified Time NPO: 00:00 Additional verifications Anesthesia Reactions: No Hx Blood Transfusions: No Blood Transfusion Reaction: No Airway Assessment Mallampati Score:: Class II C-Spine Mobility Assessed: Yes TMJ Mobility Assessed: Yes Dentition: Good Dentition Neurological Assessment Level of Consciousness: Awake and Alert Anesthesia Plan Anesthesia Risk discussed: Yes Anesthesia Plan: Verified ASA Class: II Anesthesia Type: General
--- NOTE | 2023-11-11 12:36 | EXP.ANES.I ---
[facility] Anesthesia Record Part I Anesthesia Record I Intake, IV Amount: 1,100 Hydration: Adequate Estimated blood loss (mL): 10 Urine output (mL): 150 Blood Products used (#): none Blood Pressure: 112/60 SaO2: 91 Pulse Rate: 84 Airway Patency: Patent Respiratory Rate: 16 Temperature: 99.2 F Patient is:: Drowsy and Stable Stable to PACU at:: 12:30
--- NOTE | 2023-11-11 12:39 | EXP.OP.NOTE ---
Date of procedure: 11/11/23 Pre-op Diagnosis:: 1. Postmenopausal bleeding 2. Thickened endometrial stripe Post-op Diagnosis:: 1. Postmenopausal bleeding 2. Thickened endometrial stripe Procedure performed:: Hysteroscopy, dilation, and MyoSure curettage Surgeon:: Ivonne Contreras DO [employer] OPERATOR:: Dario Patino Anesthesia: GETA Estimated blood loss (mL): 10 Operative findings:: Findings: -EUA revealed an 6-week anteverted uterus. The cervix was very anterior and flush with the vaginal wall. Almost no cervical tissue remained. No significant prolapse or support defects noted. -Hysteroscopy revealed a thin endometrial lining. Operative note:: The patient was taken back to the OR where general anesthesia was obtained.? She was placed in the dorsal lithotomy position using yellow fin stirrups and sterilely prepped and draped in the usual fashion.? An in and out catheter was used to drain her bladder.? A timeout was performed.? A weighted speculum was used to visualize this cervix, cervix noted as above. A single-tooth tenaculum was applied to the anterior lip of the cervix. The cervix was only slightly dilated to allow entry to the ectocervix and hydrodisection was used to get the scope the rest of the way into the cavity. Secondary to a significantly anteverted uterus as well as little to no cervical tissue uterine access was very difficult to obtain. An Allis was placed on the posterior ectocervix in an attempt to straighten out the cervical canal to the lower uterine access. This still did not allow access into the uterine cavity. The patient was readjusted to be further off the table and a final attempt was made. Access into the uterine cavity was achieved. Images were obtained of the cavity. The tubal ostia were visualized images were obtained. MyoSure device set up, primed and zeroed. The device was used to resect endometrial curettings. There was minimal fluid deficit. Cutting time was approximately 1 minute. Endometrial curettings were collected and sent to pathology for further evaluation. The single-tooth tenaculum and an Allis were removed and hemostasis was noted at those sites. All instruments removed from the vagina. All counts were correct x 2, per nursing. This concluded the procedure, the patient was awakened from anesthesia, and transferred to the PACU in stable condition. She will be discharged home after meeting all discharge criteria. She will follow-up in 1 week Condition: stable Disposition: PACU Specimens:: Endometrial curettings Complications:: None
[2023-11-11] MEDS: HYDROMORPHONE 2MG/ML SYRINGE 0.5 MG IV (12:55)
[2023-11-11] MEDS: OXYCODONE 5MG W/APAP 325MG TABLET 2 EACH PO (13:23)
--- NOTE | 2023-11-12 07:34 | EXP.ANES.II ---
[facility] Anesthesia Record Part II Anesthesia Record Part II Discharge Time: 12:50 Destination: Surgical Day Care (OP Surgery) PACU nurse assessment reviewed?: Yes Patient Condition:: Good Anesthesia Complications:: None Swallowing reflex intact?: Yes Airway Patency: Patent Cyanosis?: No Blood Pressure: 110/63 SaO2: 94 Respiratory Rate: 18 Pulse Rate: 74 Temperature: 97.6 F Mental Status: Alert & Oriented Pain level:: 0 Nausea and/or vomitting:: None Intake, IV Amount: 0 Hydration: Adequate
[2023-11-12 07:35] VITALS: BP 110/63; PULSE 74; RESP 18; TEMP 36.4; O2SAT 94
== END 2023-11-11 13:45 | disposition home or self-care (01) ==
PROVIDERS: PCP Family Medicine; Visit Provider Obstetrics & Gynecology
PROC: (CPT 58558; principal; 2023-11-11 11:00)
DX: N95.0 Postmenopausal bleeding (principal); N85.4 Malposition of uterus
CPT/HCPCS: 58558; J2405

== ENCOUNTER 2024-09-14 14:30 | Emergency (ER) | payer BC, SELFPAY ==
[2024-09-14 16:20] VITALS: BP 123/74; PULSE 119; RESP 21; TEMP 37.6; O2SAT 100; BMI 28.3
--- NOTE | 2024-09-14 16:22 | ED_ITS ---
Discharge Plan Disposition Patient Disposition: Home, Self-Care Condition: Good Prescriptions Prescriptions: New oseltamivir [Tamiflu] 75 mg capsule 75 mg PO Q12H 5 Days Qty: 10 0RF No Action lisinopril-hydrochlorothiazide 20-12.5 mg tablet 1 tab PO DAILY simvastatin 40 mg tablet 40 mg PO DAILY Patient Comments: TAKE ONE TABLET BY MOUTH EVERY DAY AT BEDTIME paroxetine HCl 30 mg tablet 30 mg PO DAILY Patient Comments: TAKE ONE TABLET BY MOUTH EVERY MORNING Referrals Follow up/Referrals: Bryant Argueta MD [Primary Care Provider] - See instructions Activity Restrictions/Add. Instructions Additional Instructions/Restrictions: * Start Tamiflu today if you are going to take it. Discussed risk and possible benefits. * Lots of rest * Increase Fluids water, Gatorade, powerade, pedialyte,if infant/toddler/child * Alternate Tylenol and / or ibuprofen as discussed for fever, aches, chills Follow up IMMEDIATELY with your family doctor for new or worsening Symptoms OR no noticeable improvement over the next 48-72 hours, 911 for difficulty or breathing * You or your child area contagious until no fever, aches, chills for 24 ho urs with medication for symptoms * Help Prevent the spread of influenza: * ?Wash your hands often. Use soap and water. Wash your hands after you use the bathroom, change a child's diapers, or sneeze. Wash your hands before you prepare or eat food. Use gel hand cleanser that has 60% alcohol, when soap and water are not available. Do not touch your eyes, nose, or mouth unless you have washed your hands first. * Cover your mouth when you sneeze or cough. Cough into a tissue or the bend of your arm. If you use a tissue, throw it away immediately and wash your hands. * Clean shared items with a germ-killing connie cleaner. Clean table surfaces, doorknobs, and light switches. Do not share towels, silverware, and dishes with people who are sick. Wash bed sheets, towels, silverware, and dishes with soap and water. * Wear a mask over your mouth and nose if you are sick. The face mask may help protect others from becoming infected with the flu. Wear the mask when in common areas of your home or if you seek care with a healthcare provider. * Stay away from others if you are sick. Stay at home until 24 hours after your fever and symptoms are gone. Clinical Impressions Clinical Impression: Influenza Instructions Patient Instructions: DI for Influenza -- Adult, Influenza Print Language Print Language: Japanese Discharge ED Provider: Ruma Hyman [facility] [place] HPI General Stated complaint: FEVER, COUGH AND SORE THROAT Time Seen by Provider: 09/14/24 16:22 History of Present Illness Provider Complaint: Patient states that she started feeling bad on 2 days ago States that she has been having fever, chills, body aches, and cough States that her throat is scratchy from coughing States family members are having similar symptoms Related Data Home Medications ?Medication ?Instructions ?Recorded ?Confirmed lisinopril 20 1 tab PO DAILY blood pressure 08/02/19 09/14/24 mg-hydrochlorothiazide 12.5 mg tablet paroxetine HCl 30 mg tablet 30 mg PO DAILY 11/18/23 09/14/24 simvastatin 40 mg tablet 40 mg PO DAILY 11/18/23 09/14/24 Previous Rx's ?Medication ?Instructions ?Recorded oseltamivir 75 mg capsule (Tamiflu) 75 mg PO Q12H 5 days #10 caps 09/14/24 Allergies Allergy/AdvReac Type Severity Reaction Status Date / Time Penicillins Allergy Rash Verified 11/18/23 14:14 [facility] Disclaimer: The information contained in this section may have been updated after the patient was seen, as this information can be updated by other users. Medical History (Updated 09/14/24 @ 16:32 by Ruma Hyman APRN) Anxiety and depression Surgical History (Updated 11/18/23 @ 14:21 by MERCEDES Jean) History of hysteroscopy Hx of section Hx of knee surgery Hx of cholecystectomy Family History Other Diabetes Hypertension Social History Smoking Status: Never smoker alcohol intake: never substance use type: denies use current occupational status: other Travel in the last 8 weeks: None household members: spouse housing: house current occupational exposures/hazards: No caffeine: No Have you lived/traveled outside [place] in past 30 days?: No Contact w/someone who lives/traveled outside [place] past 30 days?: No Exposure to someone with infectious disease in past 14 days?: No Do you have a fever (greater than 100.4 F or 38 C)?: No Have you tested positive for COVID-19: No Exposed to someone with COVID-19 in past 14 days?: No Do you have a sore throat?: No Do you have a cough?: No Do you have any weakness?: No Do you have any diarrhea?: No Are you experiencing any unusual bleeding?: No Do you have any muscle aches/pain?: No Do you have any abdominal pain?: No Are you experiencing loss of taste or smell?: No ROS Obtained: Yes All systems reviewed & no additional complaints except as documented and Yes Systems reviewed as appropriate & no additional complaints except as documented Constitutional Constitutional: Reports system reviewed and no additional complaints, except as documented, Reports as per HPI, Reports body ache, Reports chills, Reports fever(s) and Reports headache(s) Eyes Eyes: Reports system reviewed and no additional complaints, except as documented and Reports as per HPI ENT Ears, Nose, Mouth, and Throat: Reports system reviewed and no additional complaints, except as documented, Reports as per HPI, Reports headache(s) and Reports sore throat (scratchy throat from coughing) Cardiovascular Cardiovascular: Reports system reviewed and no additional complaints, except as documented and Reports as per HPI Respiratory Respiratory: Reports system reviewed and no additional complaints, except as documented, Reports as per HPI, Denies shortness of breath, Denies chest congestion and Reports cough Gastrointestinal Gastrointestingal: Reports system reviewed and no additional complaints, except as documented and as per HPI Neurologic Neurologic: Reports headache(s) Physical Exam General General appearance: alert and in no apparent distress ENT ENT exam: Present mucous membranes moist and TM's normal bilaterally Expanded ENT Exam Nose exam: Absent sinus tenderness Throat exam: Present other (mild pharyngeal erythema noted ) Respiratory Respiratory exam: Present normal lung sounds bilaterally; Absent respiratory distress or wheezes Cardiovascular Cardiovascular exam: Present regular rate, normal rhythm and normal heart sounds Abdominal Exam Abdominal exam: Present soft and normal bowel sounds; Absent distention or tenderness Neurological Exam Neurological exam: Present alert, oriented X3 and normal gait Medical Decision Making Medical Records Screening: Per USPSTF and CDC recommendations, given the prevalence of disease in our region, it is our hospital?s policy to screen for HIV and viral Hepatitis for all patients aged 18 and over and those with ongoing risk factors. Noam Inquiry Pt receiving controlled substance: No Noam was queried for this patient: No Lab Data Lab results reviewed: Yes I reviewed the patient's lab results.
[2024-09-14 16:31] LABS: UTC Influenza A Antigen Positive (Negative); UTC Influenza B Antigen Negative (Negative)
[2024-09-14 16:35] VITALS: BP 123/74; PULSE 119; RESP 21; TEMP 37.6; O2SAT 100
== END 2024-09-14 16:39 | disposition home or self-care (01) ==
PROVIDERS: Emergency Provider Nurse Practitioner; PCP Family Medicine
DX: J10.1 Influenza due to other identified influenza virus with other respiratory manifestations (principal)
CPT/HCPCS: 87804; 99213; G0381

== ENCOUNTER 2024-12-30 10:18 | Outpatient (CLI) | payer BC, SELFPAY ==
[2024-12-30 11:01] LABS: Albumin Level 4.8 g/dl (3.5-5.0); Chloride 101 mmol/L (98-107); Potassium 3.8 mmoL/L (3.5-5.1); Sodium 141 mmol/L (136-145)
[2024-12-30 11:04] LABS: Alanine Aminotransferase 30 U/L (12-78); Albumin/Globulin Ratio 1.5 (1.1-1.8); Alkaline Phosphatase 105 U/L (38-126); Anion Gap 15.8 mEq/L (5-15); Aspartate Amino Transferase 34 U/L (14-36); Bilirubin,Total 0.6 mg/dl (0.2-1.3); Blood Urea Nitrogen 19 mg/dl (7-17); Calcium 9.3 mg/dl (8.4-10.2); Carbon Dioxide 28 mmol/L (22.0-30.0); Chol/HDL Ratio 3.8 (1-3.5); Cholesterol 190 mg/dl (140-200); Estimated Glomerular Filt Rate 53 ml/min (>60); GFR (African American) 64 ML/MIN (>60); Globulin 3.3 g/dL (1.3-3.2); Glucose 115 mg/dl (74-100); HDL Cholesterol 50 mg/dl (40-60); Iron 84 ug/dL (37-170); Total Protein,Serum 8.1 g/dl (6.3-8.2); Triglycerides 96 mg/dl (30-150); VLDL Cholesterol 19 mg/dL (0-40)
[2024-12-30 11:15] LABS: Direct LDL Cholesterol 109.33 mg/dL (100-129)
[2024-12-30 11:34] LABS: Thyroid Stimulating Hormone 3.06 uIU/mL (0.465-4.68)
[2024-12-30 11:38] LABS: Ferritin 64.5 ng/ml (6.24-137)
[2024-12-30 13:02] LABS: Vitamin B12 549 pg/mL (239-931)
== END 2024-12-30 23:59 | disposition home or self-care (01) ==
LOC: LAB 10:19
PROVIDERS: PCP Family Medicine; Visit Provider Physician Assistant
DX: E61.1 Iron deficiency (principal); E78.5 Hyperlipidemia, unspecified; E53.8 Deficiency of other specified B group vitamins; I10 Essential (primary) hypertension
CPT/HCPCS: 36415; 80053; 80061; 82607; 82728; 83540; 84443